=== PATIENT | female | born 1990 | race Caucasian/White ===

== ENCOUNTER 2023-12-15 19:22 | Emergency (ER) | payer BC ==
[~2023-12-15] VITALS: Ht 154.9 cm; Wt 127.3 kg
[~2023-12-15 19:22] MED LIST: LORTAB 5/500 501 TAB PO; NO HOME MEDICATIONS; PREDNISONE20 MG PO
[2023-12-15 19:26] VITALS: TEMP 98.3
[2023-12-15] MEDS ORDERED: LORazepam 2 MG/ML 1 ML VIAL IV ONE (19:45)
[2023-12-15] MEDS ORDERED: NS 1,000 ML IV ONE (19:45)
[2023-12-15 19:57] LABS: BASO % 0.2 % (0.0-2.0); GRAN # 8.6 K/mm3 (1.4-6.5); GRAN % 82.8 % (42.2-75.2); HEMATOCRIT 41.8 % (37.0-47.0); HEMOGLOBIN 14.3 g/dl (12.5-16.0); LYMPH # 1.5 K/mm3 (1.2-3.4); LYMPH % 14.1 % (20.0-51.0); MEAN CELL VOLUME 89 fl (80.0-100.0); MEAN CORPUSCULAR HEMOGLOBIN 30 pg (27-31); MEAN CORPUSCULAR HGB CONC 34 g/dl (33.0-37.0); MEAN PLATELET VOLUME 10.8 fl (7.4-10.4); MONO # 0.2 K/mm3 (0.1-0.6); MONO % 2.1 % (1.7-9.3); PLATELET COUNT 285 K/mm3 (130-400); RED BLOOD COUNT 4.71 M/mm3 (4.10-5.30); REDCELL DISTRIBUTION WIDTH-CV 13.2 % (11.5-14.5)
[2023-12-15 20:14] LABS: BILIRUBIN,TOTAL 0.3 mg/dL (0.2-1.2); CALCIUM 9.8 mg/dL (8.4-10.2); CREATININE, serum 0.72 mg/dL (0.57-1.11); TOTAL PROTEIN 7.5 g/dl (6.2-8.1)
[2023-12-15] MEDS ORDERED: ATIVAN 0.50.5 MG/TAB PO ×2 (20:37→21:12)
[2023-12-15] MEDS ORDERED: Home LORazepam 0.5 MG #3 TAB/PACK PO ONE (20:45)
[2023-12-15 21:27] VITALS: BP 129/88; PULSE 76
== END 2023-12-15 21:27 | disposition home or self-care (01) ==
LOC: COL.ER 19:22
PROVIDERS: Emergency Medicine
DX: R13.10 Dysphagia, unspecified (principal)
CPT/HCPCS: J2060; J7030